=== PATIENT | female | born 1945 | race Caucasian/White ===

== ENCOUNTER 2017-08-30 11:14 | Emergency (ER) | payer MEDICARE, OTHER ==
[~2017-08-30] VITALS: Ht 157.5 cm; Wt 74.2 kg
[2017-08-30 11:18] VITALS: Ht 157.5 cm; Wt 74.2 kg
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
[2017-08-30] MEDS ORDERED: HYDR-906 PO (13:42)
[2017-08-30] MEDS ORDERED: IBUP-1542 PO (13:43)
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
== END 2017-08-30 13:52 | disposition home or self-care (01) ==
LOC: FTE 11:14
DX: R51 Headache (principal); M25.551 Pain in right hip; M79.604 Pain in right leg; M54.2 Cervicalgia
CPT/HCPCS: 70450; 72125; 73510; 73550; 73590